=== PATIENT | male | born 1965 | race Caucasian/White ===

== ENCOUNTER → 2018-01-17 | Outpatient (CLI) | payer OTHER ==
[~2018-01-17] VITALS: Ht 185.4 cm; Wt 108.4 kg
[~2018-01-17] MED LIST: ASPIR 8181 MG PO; CRESTOR10 MG PO; FLOMAX0.4 MG PO; LISINOPRIL10 MG PO; MINIPRESS2 MG PO; NEURONTIN 300300 M1 PO; PROSCAR 5MG TABL5 MG PO; TOPROL XL100 MG PO; ZOLOFT100 MG PO
--- NOTE | ~2018-01-17 | HPC ---
[facility] [email or web address] [address] PAIN MANAGEMENT CONSULTATION Name: GRACIELA BENOIT Room #: REG AURA Ross#: [id number] Admission: 01/17/18 Attend Phys: Diego Walden DO Discharge: Date of : 63 Report #: [id number] THIS REPORT FOR: //name// CC: FAM unknown [place] ____ Diego Walden The patient is a very pleasant 52-year-old gentleman seen in consultation at the request of the NC for assistance with management of axial back pain and multiple pain generators. The patient notes he had a lumbar decompressive laminectomy and L5-S1 fusion in 2014 because of low back and right leg pain. The patient claims no change in his symptoms following surgery. He has ongoing weakness in the left leg and notes it gives out with regularity and in fact gave out three times yesterday. He uses a cane 100% of the time. He has paresthesia in the left leg. Unfortunately, he also admits to saddle anesthesia and stool incontinence, which actually got worse after the surgery. The patient incidentally notes ongoing pain in the neck, status post ACDF in 2013. He has significant posterior occipital headaches with some paresthesia in the right arm. The patient describes dramatic bilateral greater occipital neuralgia and pain exacerbated with range of motion. The patient takes gabapentin 900 mg at bedtime, which he has for about 5 months. No significant improvement of pain, but it does make him a little bit drowsy. The patient describes pain as continuous, steady, constant, burning, sharp and stabbing, rates the pain anywhere from 8-10 on a VAS. Significantly impacts functional status. The patient has tried nortriptyline in the past for his headaches. He was seeing Dr. Krueger, psychiatrist at the [facility]. He is being treated for PTSD. REVIEW OF SYSTEMS: Complete review of systems attached to the chart and gone over with the patient. He is . He does not smoke or drink alcohol to excess. History of hypertension treated with metoprolol and lisinopril. He has a history of coronary artery disease, status post endovascular stent in 07/10/2012. Benign prostatic hypertrophy for which he takes tamsulosin and finasteride. Dyslipidemia for which he takes a statin type agent. PTSD for which he takes sertraline, prazosin and gabapentin at bedtime. The remaining review of systems is noncontributory. The patient is disabled. He has been disabled for the past [address] [address] PAIN MANAGEMENT CONSULTATION Name: GRACIELA BENOIT Room #: REG CLI Vandana#: [id number] Admission: 01/17/18 Attend Phys: Diego Walden DO Discharge: Date of : 63 Report #: [id number] Pain impact score is quite high, scoring 62 out of 70. PHYSICAL EXAMINATION: Reveals 6 feet 1 inch, 239 pounds gentleman, BMI is 31.5 kilograms per meter squared. Blood pressure 128/82, pulse 60 and respirations 16. Alert and oriented to person, place and time, judged to be a reasonable historian. Pupils are equal and react to light and accommodation. Extraocular muscles are intact. There is no nystagmus. Lateral gaze deviation. Cervical range of motion is limited in all planes. Rotation and extension exacerbates posterior occipital pain. Tender over the superior cervical facets. Upper extremity strength is generally preserved. Right arm abduction is a little bit diminished. Resistance testing does exacerbate posterior occipital pain. Heart is regular and rhythmical without murmur. Lungs are clear to auscultation. Abdomen is generally benign. Rises from chair using armrest. Tender across the low back and has tandem gait, but antalgic. Lumbar flexion is dramatically limited about 30 degrees. Tender in the midthoracic area with myofascial trigger points noted here. Bilateral hip flexion strength is significantly limited about 2-3/5. Right dorsiflexion is dramatically limited. Remaining muscles are about 4/5 in the lower extremities to objective testing. Patellar and Achilles reflexes are preserved. Grossly positive straight leg raise at 30 degrees on the right. Skin integument is intact. DIAGNOSTIC STUDIES: Include MRI cervical spine from 12/06/2016 noting anterior fusion at C5-C6 and C2-C3 disk signal is reduced due to degenerative changes. MRI of the lumbar spine notes surgical hardware at L5-S1, multilevel degenerative changes, asymmetric right lateral large vertebral endplate, marginal spurring associated with old herniated disk and scarring at the L5-S1 area. This results in severe right and moderate severe left neural foraminal narrowing. ASSESSMENT #1: Symptomatic lumbar radiculopathy, status post decompressive laminectomy, neuropathic pain component requiring complex medication management having failed conservative therapies. To patient's credit, he is loathe to take opiate analgesics or any other central acting agents. He has failed conservative therapies. I suggested a spinal cord stimulator, when I brought this up the patient was aware of this device and in [facility], this had been suggested and he was enthusiastic about moving forward. Apparently, they were planning on moving forward with this, but for some reason the plans got derailed. He has, I believe, past psychological evaluation with Dr. Krueger. He does have PTSD, but I think this is unrelated to his expectations regarding some improvement in functional status with the spinal cord stimulator. We will seek authorization to proceed with a spinal cord stimulator trial at earliest possible date. ASSESSMENT #2: Acute exacerbation of cervical spondylosis, greater occipital neuralgia and C3 facet arthritis. [facility] [address] [place] [address] PAIN MANAGEMENT CONSULTATION Name: GRACIELA BENOIT Room #: REG CL Vandana#: [id number] Admission: 01/17/18 Attend Phys: Diego Walden DO Discharge: Date of : 63 Report #: [id number] RECOMMENDATIONS: We will move forward with bilateral C2-C3 cervical facet joint injections at the next visit. Thank you for allowing me to participate in the patient's care. I will keep you abreast of his progress. <ELECTRONICALLY SIGNED> By: Diego Walden DO 01/18/18 0822 1644 0025 Diego Walden DO /nt
[2018-01-17 14:15] VITALS: BP 128/82
== END ==
LOC: PAIN 07:06
DX: M54.16 Radiculopathy, lumbar region (principal); Z79.899 Other long term (current) drug therapy

== ENCOUNTER → 2018-01-21 | Outpatient (CLI) | payer OTHER ==
[~2018-01-21] VITALS: Ht 185.4 cm; Wt 108.4 kg
--- NOTE | ~2018-01-21 | HPC ---
[facility] [address] [place] [address] PAIN MANAGEMENT CONSULTATION Name: GRACIELA BENOIT Room #: REG AURA Ross#: [id number] Admission: 01/21/18 Attend Phys: Diego Walden DO Discharge: Date of : 63 Report #: [id number] THIS REPORT FOR: //name// CC: FAM unknown Diego Walden PROCEDURE: Bilateral C2-C3 cervical facet joint injection under fluoroscopy. INDICATION: Symptomatic cervical spondylosis. The patient returns to the pain clinic today with ongoing pain in the superior neck and posterior occiput. We elected to proceed with bilateral cervical facet joint injection under fluoroscopy. Vital signs are stable. Exam is otherwise unchanged from last Sunday (01/17/2018 consult). PROCEDURE NOTE: Bilateral C2-C3 cervical facet joint injection under fluoroscopy. Fluoroscopy time was under 15 seconds. DESCRIPTION OF PROCEDURE: After written informed consent was obtained, the patient was taken to fluoroscopy suite, placed in prone position. After sterile prep and drape, skin wheal was raised. A 22-gauge stylet needle was placed to contact posterior aspect of the left C2-C3 cervical facet. Needle was in the middle of the lateral mass and AP and at the posterior aspect of the joint on lateral projection. Second needle was placed in a mirror fashion on the right side. Negative aspiration was accomplished. A 2 mg of Decadron plus 1 mL of 0.5% preservative-free bupivacaine was injected in each needle. The needles removed. The area was cleansed. Band-Aid applied. The patient was allowed to ambulate to recovery, monitored for an appropriate period of time. We discussed spinal cord stimulator for ongoing lumbar radicular pain status post decompressive laminectomy, failed back syndrome. The patient was discharged in good and stable condition today. Follow up in 1-2 weeks for reevaluation. <ELECTRONICALLY SIGNED> By: Diego Walden DO 01/21/18 1346 [id number] Diego Walden DO /nt
[2018-01-21 08:13] VITALS: BP 119/74
== END | disposition home or self-care (01) ==
LOC: PAIN 06:34
DX: M47.812 Spondylosis without myelopathy or radiculopathy, cervical region (principal); M96.1 Postlaminectomy syndrome, not elsewhere classified; Z79.82 Long term (current) use of aspirin; Z79.899 Other long term (current) drug therapy

== ENCOUNTER → 2018-02-04 | Outpatient (CLI) | payer OTHER ==
[~2018-02-04] VITALS: Ht 185.4 cm; Wt 109.7 kg
--- NOTE | ~2018-02-04 | HPC ---
[facility] [address] [place] [address] PAIN MANAGEMENT CONSULTATION Name: KAYCEEGRACIELA HARRIS Room #: REG AURA Ross#: [id number] Admission: 02/04/18 Attend Phys: Diego Walden DO Discharge: Date of : 63 Report #: [id number] THIS REPORT FOR: //name// CC: Annetta Walden DATE OF SERVICE: 02/04/2018 HISTORY OF PRESENT ILLNESS: The patient is a very pleasant 53-year-old gentleman being treated for lumbar radiculopathy status post decompressive laminectomy, axial back pain requiring complex medication management. Comorbidity includes cervical spondylosis without myelopathy, bilateral C2-C3 facet joint injections on 01/21/2018, did report some incremental relief of neck pain, though after the numbness wore off, pain is actually fairly similar, though his primary pain remains back, right buttock and leg. Presents to pain clinic today for spinal cord stimulator trial x 2 as discussed at prior visits. ASSESSMENT: Symptomatic lumbar radiculopathy status post decompressive laminectomy, failed back syndrome, axial back pain requiring complex medication management. RECOMMENDATIONS: We discussed risks and benefits today including risk of increased pain, paralysis, infection, spinal cord trauma. The patient wished to proceed. The patient was given 1 gram of Ancef, taken to the fluoroscopy suite, placed in prone position. After sterile prep and drape, skin wheal with Xylocaine was raised. A 14-gauge epidural Tuohy needle was placed into the posterior spinous process at T12-L1. Stylet was removed, saline filled in glass syringe, was connected with continuous plunger pressure and biplanar fluoroscopy. The needle was easily advanced in the epidural space. A single 8 contact high frequency Nevro spinal cord stimulator lead was advanced to the top of the T8 vertebral body. Second needle lead was placed from a right paramedian approach 1-2 mm cephalad entering again into the T12-L1 epidural space. This lead was advanced easily to the top of T9. AP and lateral projection showed leads in good position. With continuous observation of the lead tips, the stylets and needles were removed. The tips remained intact. Leads were secured using Steri-Strips and mastic. Wide bolster dressing was placed. The patient was allowed to ambulate back to the exam room. Monitored for an appropriate period of time, discharged in good and stable condition. Follow up will be in 3-4 days for lead removal and evaluation of trial. [facility] if he has improved functional status. Currently, the patient notes he can stand and walk, not more than 5 minutes. He just had his third granddaughter last Sunday. He is anxious to be more functional. The patient has contact information for the Nevro device rep and contact [address] [address] PAIN MANAGEMENT CONSULTATION Name: GRACIELA BENOIT Room #: REG AURA Ross#: [id number] Admission: 02/04/18 Attend Phys: Diego Walden DO Discharge: Date of : 63 Report #: [id number] information for the pain clinic physician adult basic education manager for [facility]. Discharged in good and stable condition. Fluoroscopy time was approximately 1 minute. <ELECTRONICALLY SIGNED> By: Diego Walden DO 02/06/18 0734 [id number] [id number] Diego Walden DO /nt
[2018-02-04 13:26] VITALS: BP 139/90
== END | disposition home or self-care (01) ==
LOC: PAIN 02-01 11:07
DX: M54.16 Radiculopathy, lumbar region (principal); M96.1 Postlaminectomy syndrome, not elsewhere classified; M54.9 Dorsalgia, unspecified; Z79.891 Long term (current) use of opiate analgesic; Z98.890 Other specified postprocedural states; Z79.82 Long term (current) use of aspirin; Z79.899 Other long term (current) drug therapy

== ENCOUNTER → 2018-02-07 | Outpatient (CLI) | payer OTHER ==
[~2018-02-07] VITALS: Ht 185.4 cm; Wt 110.7 kg
--- NOTE | ~2018-02-07 | HPC ---
[facility] [address] [place] [address] PAIN MANAGEMENT CONSULTATION Name: GRACIELA BENOIT Room #: REG [facility] M..#: [id number] Admission: 02/07/18 Attend Phys: Diego Walden DO Discharge: Date of : 63 Report #: [id number] THIS REPORT FOR: //name// CC: MARKY MICHELLE MD FAM unknown [facility] Diego Walden The patient is a very pleasant 53-year-old gentleman being treated for lumbar radiculopathy status post decompressive laminectomy, axial back pain, failed back syndrome. We had sought authorization for and progressed to perform spinal cord stimulator trial on 02/04/2018. Two high frequency spinal cord stimulator leads (Nevro) were placed in the epidural space to the top of T8, second lead to the top of T9. The patient returns to pain clinic today. He has had dramatic improvement in baseline pain, in functional status. He notes 85% improvement in pain and significantly longer times walking and standing. He is very pleased and would like to move forward with implantation at the earliest possible date. PHYSICAL EXAMINATION: Otherwise unchanged, pleasant 53-year-old gentleman, BMI is 32.2 kilograms per meter squared. With the stimulator on, he rates his subjective pain score 2 on a VAS, at presentation, his pain was a 9. Vital signs are stable. Rises from chair using armrest, modestly antalgic gait, diffuse tenderness across the low back. Via spinal cord stimulator lead, dressing was removed. The leads themselves were removed. The tips were intact. The insertion site looks good. No signs of inflammation, induration, or drainage. The patient was told he can shower today, but should avoid soaking in a pool for 24 hours. The patient should absolutely move forward with spinal cord stimulator implantation. We will recommend this be done within a 30-60 day timeframe. [facility] cannot [facility], would strongly encourage a referral to outside surgeon for permanent implantation. (Donnell Bach MD, orthopedist who does a great number of implants for us or Judd Marino MD, neurosurgeon at [facility]). Thank you for allowing me to participate in the patient's care. <ELECTRONICALLY SIGNED> By: Diego Walden DO 02/08/18 0829 1515 [id number] Diego Walden DO /nt
[2018-02-07 13:10] VITALS: BP 131/79
== END ==
LOC: PAIN 08:38
DX: M54.16 Radiculopathy, lumbar region (principal)